=== PATIENT | female | born 1985 | race Caucasian/White ===

== ENCOUNTER → 2018-04-16 | Outpatient (CLI) | payer OTHER | LOC: SUPIMAGING 14:15 → EDSTATUS 15:59 | PROVIDERS: ATTEND Family Medicine | DX: R05 Cough (principal); S22.41XD Multiple fractures of ribs, right side, subsequent encounter for fracture with routine healing; S22.32XD Fracture of one rib, left side, subsequent encounter for fracture with routine healing | CPT/HCPCS: 71046-PN ==